=== PATIENT | male | born 1945 | race Caucasian/White ===

== ENCOUNTER 2017-04-08 06:03 | Day surgery (SDC) | payer OTHER, BC ==
[~2017-04-08] VITALS: Ht 180.3 cm; Wt 100.9 kg
[~2017-04-08 06:03] MED LIST: DIOVAN320 MG PO; FISH OIL 1,0001 EA10 PO; LIPITOR80 MG PO; LO-DOSE ASPIRIN81 M1 PO; LOPRESSOR25 MG PO; MEN'S MULTI-VI1 EACH PO; NORCO 7.5/321 TABLET PO; PROCARDIA XL30 MG PO
[2017-04-08 07:13] VITALS: BP 122/74
[2017-04-08] MEDS ORDERED: ENDOCET 5-3251 EACH PO (10:56)
[2017-04-08 13:05] VITALS: BP 121/58
[2017-04-08 15:30] VITALS: BP 135/65
[2017-04-08 19:31] VITALS: BP 149/75
[2017-04-08 23:06] VITALS: BP 131/59
[2017-04-09 04:33] VITALS: BP 105/53
[2017-04-09 08:29] VITALS: BP 119/58
[2017-04-09 11:50] VITALS: BP 115/58
[2017-04-09 16:27] VITALS: BP 151/65
[2017-04-09 19:46] VITALS: BP 145/64
[2017-04-09 23:20] VITALS: BP 113/58
[2017-04-10 04:16] VITALS: BP 128/61
[2017-04-10 07:24] VITALS: BP 122/58
[2017-04-10] MEDS ORDERED: TAMSULOSIN HCL0.4 MG PO (11:31)
== END 2017-04-10 12:34 | disposition home or self-care (01) ==
LOC: SDC 06:03 → 2SOUTH 10:54 → 3EAST 10:54 → ENRESERV 10:55 → SDC 11:35 → 3EAST 12:26 → SDC 16:17 → 3EAST 04-10 12:34
DX: M50.223 Other cervical disc displacement at C6-C7 level (principal); M47.812 Spondylosis without myelopathy or radiculopathy, cervical region; N99.89 Other postprocedural complications and disorders of genitourinary system; N40.1 Benign prostatic hyperplasia with lower urinary tract symptoms; R35.0 Frequency of micturition; G47.33 Obstructive sleep apnea (adult) (pediatric); R33.8 Other retention of urine; I10 Essential (primary) hypertension; E78.00 Pure hypercholesterolemia, unspecified; K21.9 Gastro-esophageal reflux disease without esophagitis; Z88.0 Allergy status to penicillin; Z79.82 Long term (current) use of aspirin
CPT/HCPCS: 72020; 76000; 86850; 86900; 86901; 94660; C1713; G0378; J0131; J1100; J1170; J1885; J2250; J2270; J2405; J2710; J2765; J3010; J3370; J3480